=== PATIENT | female | born 1965 | race American Indian/Alaskan Native ===

== ENCOUNTER 2017-03-13 05:19 | Emergency (ER) | payer OTHER ==
[2017-03-13 07:55] LABS: Bacteria,Urine 1+ /HPF (Negative); Bilirubin,Urine NEG (Negative); Blood,Urine NEG (Negative); Ketones,Urine NEG (Negative); Leukocyte Esterase,Urine LG (Negative); Mucus,Urine FEW /HPF; Nitrite,Urine NEG (Negative); Urobilinogen,Urine < 2.0 mg/dL (<2.0)
--- NOTE | 2017-03-13 08:10 | Emergency Department Report ---
ED Female HPI - General Chief complaint: Urogenital-Female Stated complaint: STD TESTING/UTI Time Seen by Provider: 03/13/17 08:09 Source: patient Mode of arrival: Ambulatory Limitations: No Limitations - History of Present Illness Initial comments: Patient reports that she has urinary burning in and also she had unprotected sex 3 days ago and she is having some vaginal discharge that has fishy odor. Denies any abdominal or back pain. Patient says she is in menopause. Denies any nausea or vomiting. Denies any fever or chills. Past medical history of hypertension past surgical history of bilateral breast augmentation, lymph nodes removed from left breast and bilateral tubal ligation. She said the person that she had sexual activity with did not have any symptoms. Pain with urination is 10 out of 10 better after urinating. Pain is burning. MD Complaint: vaginal discharge, dysuria, possible STD Onset/Timin -: days(s) Location: other (Painful urinating) Radiation: L flank Severity scale (0 -10): 10 Quality: burning (only when urinate) Consistency: intermittent Improves with: other (after urinating) Worsens with: urination Are you Now?: No (Menopause) Associated Symptoms: vaginal discharge, dysuria. denies: vaginal bleeding, abdominal pain, nausea/vomiting, fever/chills, headaches, loss of appetite, hematuria, rash, seizure, shortness of breath, syncope, weakness - Related Data Sexually active: Yes Previous Rx's Medication Instructions Recorded Last Taken Type Ciprofloxacin HCl [Cipro] 500 mg PO Q12H #20 tab 06/22/14 Unknown Rx Loratadine [Claritin] 10 mg PO DAILY #30 tablet 06/22/14 Unknown Rx Promethazine /Codeine 5 ml PO Q6H PRN #150 udc 06/22/14 Unknown Rx [Phenergan/Codeine 6.25-10 mg/5 ml] predniSONE [Deltasone] 50 mg PO QDAY #5 tab 06/22/14 Unknown Rx Nitrofurantoin [place]/M-Cryst 100 mg PO Q12HR #14 capsule 03/13/17 Unknown Rx [Macrobid CAP] Phenazopyridine [Pyridium] 200 mg PO TID PRN #9 tab 03/13/17 Unknown Rx metroNIDAZOLE [Flagyl] 500 mg PO Q12HR #14 tab 09/16/17 Unknown Rx Allergies Allergy/AdvReac Type Severity Reaction Status Date / Time amlodipine besylate AdvReac HR Verified 06/22/14 08:26 [From Norvasc] INCREASES tioconazole AdvReac Swelling Verified 06/22/14 08:26 [From Monistat 1 (tioconazole)] ED Review of Systems ROS: Stated complaint: STD TESTING/UTI Other details as noted in HPI Comment: All other systems reviewed and negative Constitutional: no symptoms reported ENT: denies: throat pain Respiratory: no symptoms reported Cardiovascular: denies: chest pain, palpitations, dyspnea on exertion, orthopnea , edema, syncope, paroxysmal nocturnal dyspnea Gastrointestinal: denies: abdominal pain, nausea, vomiting, diarrhea, constipation, hematemesis, melena, hematochezia Genitourinary: dysuria, discharge. denies: urgency, frequency, hematuria, dyspareunia Skin: denies: rash Neurological: denies: headache, weakness, abnormal gait, vertigo ED Past Medical Hx - Past Medical History Previous Medical History?: Yes Hx Hypertension: Yes - Surgical History Past Surgical History?: Yes Hx Breast Surgery: Yes (BREAST AUGMENTATION; LYMPH NODE LEFT BREAST REMOVED) Additional Surgical History: TUBAL LIGATION - Family History Family history: hypertension - Social History Smoking Status: Never Smoker Substance Use Type: Alcohol Other Social History: Single - Medications Home Medications: Home Medications Medication Instructions Recorded Confirmed Last Taken Type Ciprofloxacin HCl [Cipro] 500 mg PO Q12H #20 tab 06/22/14 Unknown Rx Loratadine [Claritin] 10 mg PO DAILY #30 tablet 06/22/14 Unknown Rx Promethazine /Codeine 5 ml PO Q6H PRN #150 udc 06/22/14 Unknown Rx [Phenergan/Codeine 6.25-10 mg/5 ml] predniSONE [Deltasone] 50 mg PO QDAY #5 tab 06/22/14 Unknown Rx Nitrofurantoin [place]/M-Cryst 100 mg PO Q12HR #14 capsule 03/13/17 Unknown Rx [Macrobid CAP] Phenazopyridine [Pyridium] 200 mg PO TID PRN #9 tab 03/13/17 Unknown Rx metroNIDAZOLE [Flagyl] 500 mg PO Q12HR #14 tab 03/13/17 Unknown Rx ED Physical Exam - General Limitations: No Limitations General appearance: alert, in no apparent distress - Head Head exam: Present: atraumatic, normocephalic, normal inspection - Eye Eye exam: Present: normal appearance, PERRL, EOMI. Absent: conjunctival injection - ENT ENT exam: Present: normal exam, normal orophraynx, mucous membranes moist, normal external ear exam - Neck Neck exam: Present: normal inspection, full ROM. Absent: tenderness, lymphadenopathy - Respiratory Respiratory exam: Present: normal lung sounds bilaterally. Absent: respiratory distress, wheezes, rales, rhonchi, stridor, chest wall tenderness - Cardiovascular Cardiovascular Exam: Present: normal rhythm, tachycardia, normal heart sounds - GI/Abdominal GI/Abdominal exam: Present: soft, normal bowel sounds. Absent: distended, tenderness, guarding, rebound, rigid - Extremities Exam Extremities exam: Present: normal inspection, full ROM, normal capillary refill. Absent: tenderness, pedal edema, joint swelling, calf tenderness - Back Exam Back exam: Present: normal inspection, full ROM. Absent: tenderness, CVA tenderness (R), CVA tenderness (L), muscle spasm, paraspinal tenderness, vertebral tenderness, rash noted - Neurological Exam Neurological exam: Present: alert, oriented X3, normal gait, reflexes normal. Absent: motor sensory deficit - Psychiatric Psychiatric exam: Present: normal affect, normal mood - Skin Skin exam: Present: warm, dry, intact, normal color. Absent: rash ED Course Vital Signs 03/13/17 03/13/17 05:35 09:06 Temperature 98.1 F Pulse Rate 103 H 98 H Respiratory 20 Rate Blood Pressure 142/102 Blood Pressure 140/86 [Left] O2 Sat by Pulse 98 Oximetry - Reevaluation(s) Reevaluation #1: 03/13/17 09:09 Patient treated in emergency room her Rocephin 1 g IM to cover gonorrhea and urinary tract infection. She was also given azithromycin 1 g by mouth to cover chlamydia. Gonorrhea and chlamydia test sent off for CVA urine. Chin shows to be treated prior to test result. I'll also treat her for bacterial vaginosis which should cover Trichomonas with Flagyl over 7 days. Had no adverse reaction from medication. ED Medical Decision Making - Lab Data Lab Results 03/13/17 Range/Units 06:04 Urine Color Yellow (Yellow) Urine Turbidity Clear (Clear) Urine pH 6.0 (5.0-7.0) Ur Specific [place] 1.011 (1.003-1.030) Urine Protein 100 mg/dl (Negative) mg/dL Urine Glucose (UA) Neg (Negative) mg/dL Urine Ketones Neg (Negative) mg/dL Urine Blood Neg (Negative) Urine Nitrite Neg (Negative) Urine Bilirubin Neg (Negative) Urine Urobilinogen < 2.0 (<2.0) mg/dL Ur Leukocyte Esterase Lg (Negative) Urine WBC (Auto) 18.0 H (0.0-6.0) /HPF Urine RBC (Auto) 5.0 (0.0-6.0) /HPF U Epithel Cells (Auto) 3.0 (0-13.0) /HPF Urine Bacteria (Auto) 1+ (Negative) /HPF Urine Mucus Few /HPF Urine culture Pending Gonorrhea and chlamydia pending - Medical Decision Making Assessment/plan ED course: Patient came to the emergency room complaining of urinary burning and possible exposure to STD with abnormal vaginal discharge. found to have urinary tract infection and also chose to be treated for STD empirically. I discussed the patient that she needs to let her partner now that she has symptoms of vaginal discharge and was treated in emergency room for STD and we will need to go to the health department for further testing. Patient instructed on urinalysis result. Urineculture and gonorrhea and chlamydia pending. She was treated with antibiotics in emergency room to cover UTI, gonorrhea and Chlamydia and will be discharged home on antibiotic to cover bacterial vaginosis and Trichomonas and UTI. He was understanding of treatment plan and diagnosis. Instructed to practice safe sex. 1. Azithromycin 1 g by mouth for chlamydia and Rocephin 1 g IM to cover urinary tract infection and gonorrhea. Patient shows empiric treatment for STD due to vaginal discharge after having sexual activity 3 days ago 2.prescription for Macrobid and Pyridium which will cover UTI and urinary burning, Flagyl twice daily for 7 days which will cover bacterial vaginosis and Trichomonas. 3. follow up with primary care physician 4. Take medication as prescribed. 5. Avoid drinking all call while taking Flagyl as this medication can cause severe nausea and vomiting in an upset stomach when if they can an consume alcohol Critical care attestation.: If time is entered above; I have spent that time in minutes in the direct care of this critically ill patient, excluding procedure time. ED Disposition Clinical Impression: Abnormal vaginal fluids, Dysuria, Acute cystitis without hematuria, Possible exposure to STD Disposition: DC-01 TO HOME OR SELFCARE Is pt being admited?: No Does the pt Need Aspirin: No Condition: Stable Instructions: Dysuria (ED), Urinary Tract Infection in Women (ED), Safe Sex (ED ), Sexually Transmitted Diseases (ED) Additional Instructions: Practice Safe sex Avoid sexual active for 14 days Avoid alcohol while taking Flagyl as this can cause severe stomach upset Increase fluid intake Take Antibiotics as instructed Prescriptions: metroNIDAZOLE [Flagyl] 500 mg PO Q12HR #14 tab Nitrofurantoin [place]/M-Cryst [Macrobid CAP] 100 mg PO Q12HR #14 capsule Phenazopyridine [Pyridium] 200 mg PO TID PRN #9 tab PRN Reason: Urine Burning Referrals: PRIMARY CARE, [Primary Care Provider] - 3-5 Days Forms: Work/School Release Form(ED)
[2017-03-13] MEDS ORDERED: ZITHROMAX PO ONE (08:43)
[2017-03-13] MEDS ORDERED: XYLOCAINE 1% MPF 5 mL INFILTRATI ONE (08:43)
[2017-03-13] MEDS ORDERED: ROCEPHIN IM STA (08:43)
[2017-03-13 09:07] VITALS: BP 140/86
== END 2017-03-13 09:49 | disposition home or self-care (01) ==
LOC: ED 05:19
DX: N30.00 Acute cystitis without hematuria (principal); N89.8 Other specified noninflammatory disorders of vagina; R30.0 Dysuria; I10 Essential (primary) hypertension; Z88.8 Allergy status to other drugs, medicaments and biological substances
CPT/HCPCS: 81001; 87086; 87591; 96372; 99283; J0696

== ENCOUNTER 2019-07-11 18:48 | Emergency (ER) | payer OTHER ==
--- NOTE | 2019-07-11 21:24 | Event Note ---
ED Screening Note ED Screening Note: productive cough with yellow sputum began three weeks ago subjective fever headache body aches chest discomfort with coughing PMHx HTN allergy: latex, monistat, norvasc went through menopause non smoker This initial assessment/diagnostic orders/clinical plan/treatment(s) is/are subject to change based on patients health status, clinical progression and re- assessment by fellow clinical providers in the ED. Further treatment and workup at subsequent clinical providers discretion. Patient/guardian urged not to elope from the ED as their condition may be serious if not clinically assessed and managed. Initial orders include: labs, CXR
[2019-07-11 21:27] VITALS: BP 178/114
[2019-07-11 21:42] LABS: Basophils % (Auto) 0.5 % (0.0-1.8); Eosinophils # (Auto) 0.2 K/mm3 (0.0-0.4); Eosinophils % (Auto) 2.6 % (0.0-4.3); Hemoglobin 14.5 gm/dl (10.1-14.3); Lymphocytes # (Auto) 3.3 K/mm3 (1.2-5.4); Lymphocytes % (Auto) 38.2 % (13.4-35.0); Mean Corpuscular HGB Conc 34 % (30-34); Mean Corpuscular Volume 92 fl (79-97); Monocytes # (Auto) 0.6 K/mm3 (0.0-0.8); Monocytes % (Auto) 6.6 % (0.0-7.3); Platelet Count 356 K/mm3 (140-440); Red Blood Count 4.69 M/mm3 (3.65-5.03); Red Cell Distribution Width 14.4 % (13.2-15.2)
--- NOTE | 2019-07-11 21:55 | XRay Report ---
CHEST 2 VIEWS INDICATION / CLINICAL INFORMATION: productive cough x 3 weeks. COMPARISON: None available. FINDINGS: SUPPORT DEVICES: None. HEART / MEDIASTINUM: No significant abnormality. LUNGS / PLEURA: No significant pulmonary or pleural abnormality. .No pneumothorax. ADDITIONAL FINDINGS: No significant additional findings. IMPRESSION: 1. No acute findings. Signer Name: Kleber Wilder MD Signed: 07/11/2019 9:50 PM Workstation Name: [id number]
[2019-07-11 22:05] LABS: BUN/Creatinine Ratio 15; Blood Urea Nitrogen 9 mg/dL (7-17); Calcium 10.6 mg/dL (8.4-10.2); Hemolysis Index 30
--- NOTE | 2019-07-12 00:30 | Emergency Department Report ---
Minor Respiratory - HPI Chief Complaint: Upper Respiratory Infection Stated Complaint: FLU SX/CHEST PAIN Time Seen by Provider: 07/11/19 21:23 Duration: 2 week Minor Respiratory: Yes Able to Tolerate Fluids, Yes Cough, No Rhinorrhea, No Sore Throat, No Shortness of Breath, No Fever Other History: 54-year-old -German female presents to the emergency room for 2-1/2 weeks of cough and body aches hot and cold sweats. Patient states she's been taken TheraFlu. Patient also complains of one week of left hip pain. Patient has not taken anything for pain. Patient states she thinks her left hip pain is due to lying on her left side in the back of her truck. Patient reports a history of hypertension but did not take her medications yesterday. ED Review of Systems ROS: Stated complaint: FLU SX/CHEST PAIN Other details as noted in HPI Comment: All other systems reviewed and negative ED Past Medical Hx - Past Medical History Hx Hypertension: Yes Additional medical history: BRONCHITIS - Surgical History Hx Breast Surgery: Yes (BREAST AUGMENTATION; LYMPH NODE LEFT BREAST REMOVED) Additional Surgical History: TUBAL LIGATION - Social History Smoking Status: Never Smoker Substance Use Type: None - Medications Home Medications: Home Medications Medication Instructions Recorded Confirmed Last Taken Type Ciprofloxacin HCl [Cipro] 500 mg PO Q12H #20 tab 06/22/14 Unknown Rx Loratadine (Nf) [Claritin] 10 mg PO DAILY #30 tablet 06/22/14 Unknown Rx Promethazine /Codeine 5 ml PO Q6H PRN #150 udc 06/22/14 Unknown Rx [Phenergan/Codeine 6.25-10 mg/5 ml] predniSONE [Deltasone] 50 mg PO QDAY #5 tab 06/22/14 Unknown Rx Nitrofurantoin [place]/M-Cryst 100 mg PO Q12HR #14 capsule 03/13/17 Unknown Rx [Macrobid CAP] Phenazopyridine [Pyridium] 200 mg PO TID PRN #9 tab 03/13/17 Unknown Rx metroNIDAZOLE [Flagyl] 500 mg PO Q12HR #14 tab 03/13/17 Unknown Rx Nitrofurantoin [place]/M-Cryst 100 mg PO BID #14 capsule 05/20/18 Unknown Rx [Macrobid 100 mg Capsule] Minor Respiratory Exam - Exam General: Vital signs noted. No distress. Alert and acting appropriately. HEENT: Yes Moist Mucous Membranes, No Pharyngeal Erythema, No Pharyngeal Exudates, No Rhinorrhea, No Conjuctival Injection, No Frontal Tenderness, No Maxillary Tenderness Neck: Yes Supple, No Adenopathy Lungs: Yes Good Air Exchange, No Wheezes, No [place], No Stridor, No Cough, No Labored Respirations, No Retractions, No Use of Accessory Muscles, No Other Abnormal Lung Sounds Heart: Yes Regular, No Murmur Abdomen: Yes Normal Bowel Sounds, No Tenderness, No Peritoneal Signs Skin: No Rash, No Edema Neurologic: Alert and oriented, no deficits. Musculoskeletal: Unremarkable. ED Course Vital Signs 07/11/19 07/11/19 21:23 21:26 Temperature 98.7 F Pulse Rate 108 H 108 H Respiratory 20 18 Rate Blood Pressure 177/110 Blood Pressure 178/114 [Left] O2 Sat by Pulse 97 100 Oximetry ED Medical Decision Making - Lab Data Result diagrams: 07/11/19 21:31 07/11/19 21:31 - Radiology Data Radiology results: report reviewed Patient: JASON TRUJILLO MR#: [id number] : 1965 Acct:[id number] Age/Sex: 54 / F ADM Date: 07/11/19 Loc: ED Attending Dr: Ordering Physician: ELLIOT CARMICHAEL Date of Service: 07/11/19 Procedure(s): XR chest routine 2V Accession Number(s): [id number] cc: ELLIOT CARMICHAEL Fluoro Time In Minutes: CHEST 2 VIEWS INDICATION / CLINICAL INFORMATION: productive cough x 3 weeks. COMPARISON: None available. FINDINGS: SUPPORT DEVICES: None. HEART / MEDIASTINUM: No significant abnormality. LUNGS / PLEURA: No significant pulmonary or pleural abnormality. .No pneumothorax. ADDITIONAL FINDINGS: No significant additional findings. IMPRESSION: 1. No acute findings. Signer Name: Kleber Wilder MD Signed: 07/11/2019 9:50 PM Workstation Name: [id number] Transcribed By: SS Dictated By: Kleber Wilder MD Electronically Authenticated By: Kleber Wilder MD Signed Date/Time: 07/11/192149 DD/ 49 TD/TT: - Medical Decision Making 54-year-old -German female presents to the emergency room for 2-1/2 wee ks of cough and body aches hot and cold sweats. Patient states she's been taken TheraFlu. Patient also complains of one week of left hip pain. Patient has not taken anything for pain. Patient states she thinks her left hip pain is due to lying on her left side in the back of her truck. Patient reports a history of hypertension but did not take her medications yesterday. Critical care attestation.: If time is entered above; I have spent that time in minutes in the direct care of this critically ill patient, excluding procedure time. ED Disposition Clinical Impression: Viral syndrome Hip pain, acute Qualifiers: Laterality: left Qualified Code(s): M25.552 - Pain in left hip Disposition: - TO HOME OR SELFCARE Is pt being admited?: No Does the pt Need Aspirin: No Condition: Stable Instructions: Viral Syndrome (ED) Additional Instructions: Chest x-ray is negative for any acute findings. Please take ibuprofen or Tylenol for body aches and left hip pain. He can take [id number] Robitussin-DM, Claritin. Follow up with her primary care provider for symptoms persist or gets worse. Referrals: Your, Primary Care provider [Other] - 3-5 Days
== END 2019-07-12 00:40 | disposition home or self-care (01) ==
LOC: ED 18:48
DX: B34.9 Viral infection, unspecified (principal); M25.552 Pain in left hip; I10 Essential (primary) hypertension; Z98.51 Tubal ligation status; Z79.899 Other long term (current) drug therapy; Z91.041 Radiographic dye allergy status; Z88.2 Allergy status to sulfonamides
CPT/HCPCS: 36415; 71046; 80048; 85025